=== PATIENT | female | born 1980 | race African-American/Black ===

== ENCOUNTER 2018-06-19 11:36 | Emergency (ER) | payer MEDICAID ==
[~2018-06-19] VITALS: Ht 160 cm; Wt 65.9 kg
[2018-06-19 11:39] VITALS: Ht 160 cm; Wt 65.9 kg
[2018-06-19 12:12] LABS: BASOPHILS 0.4 % (0-2); EOSINOPHILS 0.5 % (0-7); HEMATOCRIT 36.3 % (36.0-48.0); HEMOGLOBIN 12.1 g/dL (12-16); IMMATURE GRANULOCYTES 0.8 % (0-5); LYMPHOCYTES 21.5 % (15-50); MCH 31.5 pg (26.0-34.0); MCHC 33.3 g/dL (31.0-37.0); MCV 94.5 fL (80.0-100.0); MEAN PLATELET VOLUME 9.7 fL (7.4-10.4); MONOCYTES 5.1 % (2-11); NEUTROPHILS 71.7 % (40-80); PLATELET COUNT 278 10x3/uL (130-400); RBC 3.84 10x6/uL (4.00-5.40); RDW 12.8 % (11.5-14.5); WBC 10.6 10x3/uL (4.8-10.8)
[2018-06-19 12:30] LABS: ALBUMIN 3.8 g/dL (3.4-5.0); ANION GAP 16.1 mmol/L (8-16); BILIRUBIN - TOTAL 0.28 mg/dL (0.2-1.3); CALCIUM 8.7 mg/dL (8.5-10.1); CARBON DIOXIDE 24.8 mmol/L (21.0-32.0); POTASSIUM - SERUM 3.9 mmol/L (3.5-5.1); PROTEIN - SERUM 7.8 g/dL (6.4-8.2)
[2018-06-19] MEDS ORDERED: LISINOPRIL10 MG PO (14:32)
[2018-06-19] MEDS ORDERED: TOPROL XL50 MG PO (14:32)
[2018-06-19 14:55] VITALS: BP 156/97
== END 2018-06-19 14:56 | disposition home or self-care (01) ==
LOC: D.ER 11:36
PROVIDERS: Emergency Medicine
DX: I10 Essential (primary) hypertension (principal); F17.200 Nicotine dependence, unspecified, uncomplicated

== ENCOUNTER 2018-07-06 21:48 | Emergency (ER) | payer MEDICAID ==
[~2018-07-06] VITALS: Ht 160 cm; Wt 65.9 kg
[~2018-07-06 21:48] MED LIST: LISINOPRIL10 MG PO; TOPROL XL50 MG PO
[2018-07-06 21:52] VITALS: Ht 160 cm; Wt 65.9 kg
[2018-07-06 22:41] LABS: APPEARANCE CLEAR (CLEAR); BILIRUBIN NEGATIVE (NEGATIVE); COLOR YELLOW (YELLOW); GLUCOSE NEGATIVE (NEGATIVE); KETONE NEGATIVE (NEGATIVE); NITRITE NEGATIVE (NEGATIVE); PROTEIN NEGATIVE (NEGATIVE); SPECIFIC GRAVITY 1.005 (1.005-1.020); UROBILINOGEN NORMAL (NORMAL)
[2018-07-06 22:42] LABS: HCG URINE NEGATIVE (NEGATIVE)
[2018-07-06 22:43] LABS: BASOPHILS 0.3 % (0-2); EOSINOPHILS 0.5 % (0-7); HEMATOCRIT 35.2 % (36.0-48.0); IMMATURE GRANULOCYTES 0.1 % (0-5); LYMPHOCYTES 21.7 % (15-50); MCH 31.2 pg (26.0-34.0); MCHC 34.1 g/dL (31.0-37.0); MCV 91.4 fL (80.0-100.0); MEAN PLATELET VOLUME 9.1 fL (7.4-10.4); MONOCYTES 5.2 % (2-11); NEUTROPHILS 72.2 % (40-80); PLATELET COUNT 271 10x3/uL (130-400); RBC 3.85 10x6/uL (4.00-5.40); RDW 12.7 % (11.5-14.5); WBC 9.9 10x3/uL (4.8-10.8)
[2018-07-06 22:47] LABS: UDS - AMPHET NEGATIVE QUAL (NEGATIVE); UDS - BARB NEGATIVE QUAL (NEGATIVE); UDS - BENZO NEGATIVE QUAL (NEGATIVE); UDS - COCAINE NEGATIVE QUAL (NEGATIVE); UDS - OPIATE NEGATIVE QUAL (NEGATIVE); UDS - PCP NEGATIVE QUAL (NEGATIVE); UDS - THC NEGATIVE QUAL (NEGATIVE)
[2018-07-06] MEDS ORDERED: CATAPRES0.2 MG PO (22:47)
[2018-07-06 22:54] LABS: ALBUMIN 4.3 g/dL (3.4-5.0); ALKALINE PHOSPHATASE 70 U/L (46-116); ALT (SGPT) 21 U/L (10-68); BILIRUBIN - TOTAL 0.36 mg/dL (0.2-1.3); CALC OSMOLALITY 266 mosm/kg (275-300); CALCIUM 8.8 mg/dL (8.5-10.1); CARBON DIOXIDE 23.3 mmol/L (21.0-32.0); CHLORIDE - SERUM 96 mmol/L (98-107); CREATININE - SERUM 0.8 mg/dL (0.6-1.3); GLUCOSE 105 mg/dL (74-106); POTASSIUM - SERUM 3.8 mmol/L (3.5-5.1); PROTEIN - SERUM 8.7 g/dL (6.4-8.2); SODIUM 134 mmol/L (136-145); UREA NITROGEN 11 mg/dL (7-18); eGFR NON AFRICAN AMERICAN 85 mL/min (90-120)
[2018-07-06 23:03] LABS: LIPASE 189 U/L (73-393); MAGNESIUM - SERUM 1.9 mg/dL (1.8-2.4); PRO BNP 35 pg/mL (0-125); THYROID STIMULATING HORMONE 2.81 uIU/mL (0.36-3.74)
[2018-07-06 23:04] LABS: TROPONIN-I < 0.017 ng/mL (0.000-0.060)
[2018-07-07 01:11] VITALS: BP 126/87
== END 2018-07-07 01:12 | disposition home or self-care (01) ==
LOC: D.ER 21:48
PROVIDERS: Family Medicine
DX: I10 Essential (primary) hypertension (principal); R07.9 Chest pain, unspecified; F17.200 Nicotine dependence, unspecified, uncomplicated

== ENCOUNTER 2018-11-09 18:19 | Emergency (ER) | payer MEDICAID ==
[~2018-11-09] VITALS: Ht 160 cm; Wt 66.4 kg
[~2018-11-09 18:19] MED LIST changes: +CATAPRES0.2 MG PO
[2018-11-09 18:20] VITALS: Ht 160 cm; Wt 66.4 kg
[2018-11-09] MEDS ORDERED: TOPROL XL50 MG PO (21:11)
[2018-11-09] MEDS ORDERED: LISINOPRIL10 MG PO (21:11)
[2018-11-09 21:22] VITALS: BP 164/97
== END 2018-11-09 21:22 | disposition home or self-care (01) ==
LOC: D.ER 18:19
DX: I10 Essential (primary) hypertension (principal); Z76.0 Encounter for issue of repeat prescription